=== PATIENT | female | born 1975 | race Caucasian/White ===

== ENCOUNTER 2019-02-15 11:10 | Emergency (ER) | payer OTHER, MEDICAID, SELFPAY ==
[2019-02-15] VITALS (11 sets, daily range): BP systolic 137–179; BP diastolic 71–109; PULSE 21–99; RESP 14–22; TEMP 36.6–37.5; O2SAT 97–100; BMI 31.4
--- NOTE | 2019-02-15 13:02 | DI.RAD.S_ITS ---
PROCEDURE: XR CHEST 2V INDICATIONS: chest pain TECHNIQUE: 2 views of the chest were acquired. COMPARISON: None. FINDINGS: Surgical changes and devices: None. Lungs and pleura: Lungs are clear. No pleural effusions or pneumothorax. Mediastinum: Mediastinal contours are normal. Heart size is normal. Bones and chest wall: No suspicious bony abnormalities. Soft tissues appear unremarkable. IMPRESSION: No acute cardiopulmonary findings. Dictated by: Ana Laura Avendano M.D. on 02/15/2019 at 13:24 Approved by: Ana Laura Avendano M.D. on 02/15/2019 at 13:24
--- NOTE | 2019-02-15 14:28 | ED.CHESTPAIN ---
HPI - Chest Pain <Teagan Marx PA-C - Last Filed: 02/15/19 23:05> General Chief Complaint: Chest Pain Stated Complaint: CHEST PAIN,DIZZY,HEADACHE FOR 3 DAYS Time Seen by Provider: 02/15/19 11:18 Source: patient Mode of arrival: ambulatory Limitations: no limitations History of Present Illness HPI narrative: This 43-year-old woman comes to ED secondary to intermittent sharp, brief, stabbing chest pains worsening over the last 3 weeks (she states they started about 2 months ago). She states that she has also had intermittent palpitations, which she describes as a fast, but regular heart rate, in the same time period as well. she states that the pains do not correlate with the times that she has palpitations. She states that pains can occur at rest or anytime, last a second like a little stab. She states that last night in bed she had onset of the palpitations, then the brief chest pains. She states that these are localized. She denies any dyspnea, nausea or vomiting it. She denies any radiation of the pain. she states symptoms are not exertional, but sometimes when she does exert herself her heart rate will be faster. She states that she can be lightheaded with the palpitations and did not go to work in the last couple of days due to feeling poorly. She has not had any recent upper respiratory illness such as cough, fever, or wheezing, states she has some nasal congestion and ongoing headache that she thinks is due to her allergies. She denies any pain or swelling in her arms or legs or other new symptoms today. States that she does not have any urinary symptoms or bowel habit changes or blood in the stools, denies possibility of . She notes that her blood pressure has tended to be on the high side though no diagnosis of hypertension, and she has been working on weight loss to help with that. She has not been taking any new supplements or herbal medications and is not on any chronic medications. She has been eating and drinking normally. Her symptoms are better today, states she did not come in last night because she thought it would get better. No family history of blood clots. Related Data Home Medications Medication Instructions Recorded Confirmed ferrous sulfate 325 mg (65 mg 325 mg PO DAILY tab 02/18/19 02/18/19 iron) tablet Previous Rx's Medication Instructions Recorded tranexamic acid 650 mg tablet 1,300 mg PO TID 5 Days #30 tab 02/18/19 Allergies Allergy/AdvReac Type Severity Reaction Status Date / Time No Known Drug Allergies Allergy Verified 02/18/19 15:05 Review of Systems <Teagan Marx PA-C - Last Filed: 02/15/19 23:05> Review of Systems ROS Unobtainable: All systems reviewed & are unremarkable except as noted in HPI and below PFSH <Teagan Marx PA-C - Last Filed: 02/15/19 23:05> Medical History (Updated 02/15/19 @ 22:52 by Teagan Marx PA-C) Elevated blood pressure reading (Chronic) Seasonal allergies (Chronic) Surgical History (Updated 02/15/19 @ 14:54 by Teagan Marx PA-C) No history of previous surgery (Chronic) Social History Smoking Status: Never smoker Social History Smoking Status: Never smoker Exam <Teagan Marx PA-C - Last Filed: 02/15/19 23:05> Narrative Exam Narrative: GENERAL APPEARANCE: Patient sitting comfortably, in no distress. NECK/THYROID: Neck supple, no JVD. LUNGS: Clear to auscultation bilaterally. CHEST: Minimal sternal tenderness to palpation HEART: Regular rate and rhythm without murmur, normal S1, S2, no S3 or S4. ABDOMEN: Soft, NT, ND, + BS x 4 quadrants EXTREMITIES: No cyanosis or edema. No calf tenderness RECTAL: Prolapsed hemorrhoid noted, there is minimal stool in vault, guaiac negative, no palpable masses NEUROLOGIC: Alert and oriented, normal speech, gait and coordination. DERMATOLOGIC: No exanthem Initial Vital Signs Initial Vital Signs: Vital Signs Temperature 97.9 F 02/15/19 11:23 Pulse Rate 94 H 02/15/19 11:23 Respiratory Rate 15 02/15/19 11:23 Blood Pressure 179/109 H 02/15/19 11:23 Pulse Oximetry 100 02/15/19 11:23 <Amalia Peralta DO - Last Filed: 02/21/19 07:26> Initial Vital Signs Initial Vital Signs: Vital Signs Temperature 97.9 F 02/15/19 11:23 Pulse Rate 94 H 02/15/19 11:23 Respiratory Rate 15 02/15/19 11:23 Blood Pressure 179/109 H 02/15/19 11:23 Pulse Oximetry 100 02/15/19 11:23 Course <Teagan Marx PA-C - Last Filed: 02/15/19 23:05> Additional Information: Patient has no history of anemia, but in discussion she has chronic very heavy menses. She states these have been gradually getting worse to the point that she will need to wear a diaper sometimes. She had a prolonged menses starting in late November that lasted close to 6 weeks and was heavy. She states that her menses end of last month lasted about 5 days, heavy with clots but more typical for her. Suspect her bleeding is gradual, chronic. No evidence of GI bleed. Transfusion ordered. I have spoken with Dr. Bray who is on-call for aquatics specialist, does not think she needs admission but will see her on Monday, requested ultrasound be done here. Patient was transfused 2 units, feeling significantly improved at the time of discharge. patient agrees to start on iron supplementation tomorrow. Orders Ordered: Discontinued Medications Acetaminophen (Tylenol) 650 mg PO NOW ONE Stop: 02/15/19 15:52 Last Admin: 02/15/19 18:12 Dose: 650 mg Diphenhydramine HCl (Benadryl) 25 mg IV NOW ONE Stop: 02/15/19 15:52 Last Admin: 02/15/19 18:13 Dose: 25 mg Ketorolac Tromethamine (Toradol) 30 mg IV NOW ONE Stop: 02/15/19 21:01 Last Admin: 02/15/19 21:04 Dose: 30 mg Vital Signs - 8 hr 02/15/19 18:09 02/15/19 18:41 02/15/19 18:56 Temperature 99.5 F 99.3 F Pulse Rate 97 H 98 H 97 H Respiratory Rate 20 20 18 Blood Pressure 145/71 H Blood Pressure [Left Arm] 153/80 H 143/75 H Pulse Oximetry 97 99 02/15/19 18:57 02/15/19 19:27 02/15/19 20:00 Temperature 99.5 F Pulse Rate 99 H 99 H 21 L Respiratory Rate 18 17 14 Blood Pressure 138/72 Blood Pressure [Left Arm] 143/75 H 146/82 H Pulse Oximetry 97 99 02/15/19 21:27 02/15/19 22:50 Temperature 99 F Pulse Rate 94 H 86 Respiratory Rate 19 18 Blood Pressure 137/79 Blood Pressure [Left Arm] 153/81 H Pulse Oximetry 99 <Amalia Peralta DO - Last Filed: 02/21/19 07:26> Orders Ordered: Discontinued Medications Acetaminophen (Tylenol) 650 mg PO NOW ONE Stop: 02/15/19 15:52 Last Admin: 02/15/19 18:12 Dose: 650 mg Diphenhydramine HCl (Benadryl) 25 mg IV NOW ONE Stop: 02/15/19 15:52 Last Admin: 02/15/19 18:13 Dose: 25 mg Ketorolac Tromethamine (Toradol) 30 mg IV NOW ONE Stop: 02/15/19 21:01 Last Admin: 02/15/19 21:04 Dose: 30 mg Vital Signs - 8 hr 02/15/19 18:09 02/15/19 18:41 02/15/19 18:56 Temperature 99.5 F 99.3 F Pulse Rate 97 H 98 H 97 H Respiratory Rate 20 20 18 Blood Pressure 145/71 H Blood Pressure [Left Arm] 153/80 H 143/75 H Pulse Oximetry 97 99 02/15/19 18:57 02/15/19 19:27 02/15/19 20:00 Temperature 99.5 F Pulse Rate 99 H 99 H 21 L Respiratory Rate 18 17 14 Blood Pressure 138/72 Blood Pressure [Left Arm] 143/75 H 146/82 H Pulse Oximetry 97 99 02/15/19 21:27 02/15/19 22:50 Temperature 99 F Pulse Rate 94 H 86 Respiratory Rate 19 18 Blood Pressure 137/79 Blood Pressure [Left Arm] 153/81 H Pulse Oximetry 99 MDM - Chest Pain <Teagan Marx PA-C - Last Filed: 02/15/19 23:05> Lab Data Attestation: I reviewed the patient's lab results. Result diagrams: 02/15/19 20:35 02/15/19 14:50 Lab Results 02/15/19 02/15/19 02/15/19 Range/Units 14:50 14:50 14:50 WBC 8.5 (4.5-11.0) X10^3/uL RBC 4.68 (4.0-5.2) X10^6/uL Hgb 7.2 L (12.0-16.0) g/dL Hct 25.1 L (36-46) % MCV 53.7 L (80-100) fL MCH 15.3 L (26-34) PG MCHC 28.4 L (30-36) % RDW 20.1 H (11.6-14.8) % Plt Count 546 H (150-400) X10^3/uL Neut % (Auto) 63.1 (50-75) % Lymph % (Auto) 27.6 (25-40) % [place] % (Auto) 6.9 (3-14) % Eos % (Auto) 0.9 L (2-4) % Baso % (Auto) 1.5 (0-2) % Neut # (Auto) 5300 (9966-3009) /uL Lymph # (Auto) 2300 (5228-9034) /uL [place] # (Auto) 600 (0-900) /uL Eos # (Auto) 100 (0-450) /uL Baso # (Auto) 100 (0-100) /uL RBC Morphology Not Reportable Hypochromasia 3+ H Anisocytosis 3+ H Microcytosis 3+ H Stomatocytes 1+ H Sodium 137 (137-145) mmol/L Potassium 3.7 (3.4-5.1) mmol/L Chloride 100 (98-107) mmol/L Carbon Dioxide 25 (22-32) mmol/L BUN 9 (7-17) mg/dL Creatinine 0.50 L (0.52-1.04) mg/dL Estimated GFR > 60.0 (>60) mL/min BUN/Creatinine Ratio 18.0 (6-22) Glucose 99 (70-100) mg/dL Calcium 9.3 (8.4-10.2) mg/dL Magnesium 1.9 (1.6-2.3) mg/dL Total Bilirubin 0.4 (0.2-1.3) mg/dL AST 31 (14-36) IU/L ALT 32 (9-52) IU/L Alkaline Phosphatase 79 (38-126) U/L Total Protein 8.4 H (6.3-8.2) g/dL Albumin 4.6 (3.5-5.0) g/dL Globulin 3.8 (1.7-4.1) g/dL Albumin/Globulin Ratio 1.2 (1.0-2.8) TSH 2.11 (0.47-4.68) uIU/mL Blood Type Antibody Screen Crossmatch 02/15/19 02/15/19 Range/Units 15:57 20:35 WBC (4.5-11.0) X10^3/uL RBC (4.0-5.2) X10^6/uL Hgb 8.6 L (12.0-16.0) g/dL Hct 29.1 L (36-46) % MCV (80-100) fL MCH (26-34) PG MCHC (30-36) % RDW (11.6-14.8) % Plt Count (150-400) X10^3/uL Neut % (Auto) (50-75) % Lymph % (Auto) (25-40) % [place] % (Auto) (3-14) % Eos % (Auto) (2-4) % Baso % (Auto) (0-2) % Neut # (Auto) (9176-3992) /uL Lymph # (Auto) (2109-4687) /uL [place] # (Auto) (0-900) /uL Eos # (Auto) (0-450) /uL Baso # (Auto) (0-100) /uL RBC Morphology Hypochromasia Anisocytosis Microcytosis Stomatocytes Sodium (137-145) mmol/L Potassium (3.4-5.1) mmol/L Chloride (98-107) mmol/L Carbon Dioxide (22-32) mmol/L BUN (7-17) mg/dL Creatinine (0.52-1.04) mg/dL Estimated GFR (>60) mL/min BUN/Creatinine Ratio (6-22) Glucose (70-100) mg/dL Calcium (8.4-10.2) mg/dL Magnesium (1.6-2.3) mg/dL Total Bilirubin (0.2-1.3) mg/dL AST (14-36) IU/L ALT (9-52) IU/L Alkaline Phosphatase (38-126) U/L Total Protein (6.3-8.2) g/dL Albumin (3.5-5.0) g/dL Globulin (1.7-4.1) g/dL Albumin/Globulin Ratio (1.0-2.8) TSH (0.47-4.68) uIU/mL Blood Type B Positive Antibody Screen Negative Crossmatch See Detail Point of Care Testing Test Results Negative Imaging Data Chest x-ray: Radiologist's impression: Chart Viewer Diagnostics DATE TYPE STATUS AUTHOR Hx 02/15/19 13:02 Ana Laura Avendano Lizbeth Turcios 43, F0 1975 REG ER, ED.LOC - Main ED: R05 157.48cm 78.018kg BMI: 31.5kg/m? Chest Pain Search Chart No Data to Display No Data to Display ONSET Today 11:23 Lizbeth Turcios 43 F 1975 [place] [address] XRay Report Signed Patient: Lizbeth Turcios LMR#: [id number] : 1975Acct:[id number] Age/Sex: 43 / FDate of Service: 02/15/19 Loc: ED Accession Number: [id number] Procedure: XR chest 2V Ordering Provider: Jaleel Jain D.O. PROCEDURE: XR CHEST 2V INDICATIONS: chest pain TECHNIQUE: 2 views of the chest were acquired. COMPARISON: None. FINDINGS: Surgical changes and devices: None. Lungs and pleura: Lungs are clear. No pleural effusions or pneumothorax. Mediastinum: Mediastinal contours are normal. Heart size is normal. Bones and chest wall: No suspicious bony abnormalities. Soft tissues appear unremarkable. IMPRESSION: No acute cardiopulmonary findings. Dictated by: Ana Laura Avendano M.D. on 02/15/2019 at 13:24 Approved by: Ana Laura Avendano M.D. on 02/15/2019 at 13:24 US pelvis: Radiologist's impression: 24 Teagan Marx PA-C Find Patient Imaging Lizbeth Turcios 43 F 1975 ACTIVITY DATE EXAM STATUS AUTHOR 02/15/19 15:59 Signed Ana Laura Avendano 02/15/19 13:02 Signed Ana Laura Avendano ORDER STATUS ORDER START ORDER DETAIL US pelvic limited Cancelled 02/15/19 15:52 US abdomen complete Cancelled 02/15/19 14:[address] [address] Ultrasound Report Signed Patient: Lizbeth Turcios LMR#: [id number] : 1975Acct:[id number] Age/Sex: 43 / FDate of Service: 02/15/19 Loc: ED Accession Number: [id number] Procedure: US pelvic complete Ordering Provider: Teagan Marx P.A-C PROCEDURE: US PELVIC COMPLETE INDICATIONS: abnormal bleeding, anemi TECHNIQUE: Real-time scanning was performed of the pelvic organs, with image documentation. Additional endovaginal scanning was necessary due to incomplete visualization of the adnexal and endometrial structures by transabdominal scanning. COMPARISON: None. FINDINGS: Transabdominal scanning: Limited scanning through the kidneys shows no hydronephrosis. No pathologic free abdominal or pelvic fluid Endovaginal scanning: Uterus: Uterus is normal in size at 10.9 x 6.2 cm. The endometrium measures 13 mm in combined thickness. . There is a midline submucosal fibroid with calcifications which measures 1.8 x 1.7 x 1.6 cm. There is a midline posterior intramural fibroid which measures 1.1 x 0.9 x 0.1 cm. Ovaries: The right ovary is not visualized. The left ovary measures 2.3 x 1.4 x 1.9 cm. There is a 1.7 x 1.5 x 2.1 cm left ovarian cyst. IMPRESSION: 1. Small uterine fibroids. 2. Left ovarian cyst which is likely physiologic in a premenopausal female. 3. No discrete findings to explain patient's symptoms. Dictated by: Ana Laura Avendano M.D. on 02/15/2019 at 16:56 Approved by: Ana Laura Avendano M.D. on 02/15/2019 at 16:59 ECG Data Attestation: I personally reviewed and interpreted this ECG as follows: (Normal sinus rhythm, rate 94, normal axis, no ST changes) <Amalia Peralta, DO - Last Filed: 02/21/19 07:26> Lab Data Lab Results 02/15/19 02/15/19 02/15/19 Range/Units 14:50 14:50 14:50 WBC 8.5 (4.5-11.0) X10^3/uL RBC 4.68 (4.0-5.2) X10^6/uL Hgb 7.2 L (12.0-16.0) g/dL Hct 25.1 L (36-46) % MCV 53.7 L (80-100) fL MCH 15.3 L (26-34) PG MCHC 28.4 L (30-36) % RDW 20.1 H (11.6-14.8) % Plt Count 546 H (150-400) X10^3/uL Neut % (Auto) 63.1 (50-75) % Lymph % (Auto) 27.6 (25-40) % [place] % (Auto) 6.9 (3-14) % Eos % (Auto) 0.9 L (2-4) % Baso % (Auto) 1.5 (0-2) % Neut # (Auto) 5300 (1892-6934) /uL Lymph # (Auto) 2300 (9086-1615) /uL [place] # (Auto) 600 (0-900) /uL Eos # (Auto) 100 (0-450) /uL Baso # (Auto) 100 (0-100) /uL RBC Morphology Not Reportable Hypochromasia 3+ H Anisocytosis 3+ H Microcytosis 3+ H Stomatocytes 1+ H Sodium 137 (137-145) mmol/L Potassium 3.7 (3.4-5.1) mmol/L Chloride 100 (98-107) mmol/L Carbon Dioxide 25 (22-32) mmol/L BUN 9 (7-17) mg/dL Creatinine 0.50 L (0.52-1.04) mg/dL Estimated GFR > 60.0 (>60) mL/min BUN/Creatinine Ratio 18.0 (6-22) Glucose 99 (70-100) mg/dL Calcium 9.3 (8.4-10.2) mg/dL Magnesium 1.9 (1.6-2.3) mg/dL Total Bilirubin 0.4 (0.2-1.3) mg/dL AST 31 (14-36) IU/L ALT 32 (9-52) IU/L Alkaline Phosphatase 79 (38-126) U/L Total Protein 8.4 H (6.3-8.2) g/dL Albumin 4.6 (3.5-5.0) g/dL Globulin 3.8 (1.7-4.1) g/dL Albumin/Globulin Ratio 1.2 (1.0-2.8) TSH 2.11 (0.47-4.68) uIU/mL Blood Type Antibody Screen Crossmatch 02/15/19 02/15/19 Range/Units 15:57 20:35 WBC (4.5-11.0) X10^3/uL RBC (4.0-5.2) X10^6/uL Hgb 8.6 L (12.0-16.0) g/dL Hct 29.1 L (36-46) % MCV (80-100) fL MCH (26-34) PG MCHC (30-36) % RDW (11.6-14.8) % Plt Count (150-400) X10^3/uL Neut % (Auto) (50-75) % Lymph % (Auto) (25-40) % [place] % (Auto) (3-14) % Eos % (Auto) (2-4) % Baso % (Auto) (0-2) % Neut # (Auto) (1378-0101) /uL Lymph # (Auto) (7697-4255) /uL [place] # (Auto) (0-900) /uL Eos # (Auto) (0-450) /uL Baso # (Auto) (0-100) /uL RBC Morphology Hypochromasia Anisocytosis Microcytosis Stomatocytes Sodium (137-145) mmol/L Potassium (3.4-5.1) mmol/L Chloride (98-107) mmol/L Carbon Dioxide (22-32) mmol/L BUN (7-17) mg/dL Creatinine (0.52-1.04) mg/dL Estimated GFR (>60) mL/min BUN/Creatinine Ratio (6-22) Glucose (70-100) mg/dL Calcium (8.4-10.2) mg/dL Magnesium (1.6-2.3) mg/dL Total Bilirubin (0.2-1.3) mg/dL AST (14-36) IU/L ALT (9-52) IU/L Alkaline Phosphatase (38-126) U/L Total Protein (6.3-8.2) g/dL Albumin (3.5-5.0) g/dL Globulin (1.7-4.1) g/dL Albumin/Globulin Ratio (1.0-2.8) TSH (0.47-4.68) uIU/mL Blood Type B Positive Antibody Screen Negative Crossmatch See Detail Point of Care Testing Test Results Negative ECG Data Attestation: I personally reviewed and interpreted this ECG as follows: Prior ECG tracings: not available for review Interpretation: Normal sinus rhythm rate 94 P are interval 131 the T-wave inversion noted in lead [address] changes Discharge Plan Departure Patient Disposition: Home Clinical Impression: Anemia Qualifiers: Anemia type: iron deficiency Iron deficiency anemia type: chronic blood loss Qualified Code(s): D50.0 - Iron deficiency anemia secondary to blood loss (chronic) Discharge Date/Time: 02/15/19 22:10 Interventions: ED Discharge Assessment Last Done: 02/15/19 22:10 Instructions: DI for Iron Deficiency Anemia-Adult Activity Restrictions/Additional Instructions: You were found to be very anemic today and we have given you a blood transfusion to help with this and help you feel better. Since you are feeling better, you can return home. I suspect that you have a chronic iron deficiency anemia which has gradually worsened due to your severe menstrual bleeding. I have talked with Dr. Bray, our on-call cool roofing installer, and she will see you on Monday afternoon, please check in at 3:15. for your appointment. Tomorrow morning brain picker iron supplement (ferrous sulfate, 324 or 325 mg, available [id number]) and start taking 1 tablet twice daily. Please return to the ED if you have any acutely worsening symptoms over the weekend. Prescriptions: No Action ferrous sulfate 325 mg (65 mg iron) tablet 325 mg PO DAILY RF: 0 tranexamic acid 650 mg tablet 1,300 mg PO TID 5 Days Qty: 30 RF: 0 Referrals: Ashlie Bray MD [Physician] - Raya Garcia ARNP [Non-Staff] - <Amalia Peralta DO - Last Filed: 02/21/19 07:26> Cosign ED Attending Amandaature Attestation: I was immediately available in the department for consultation. Documentation has been reviewed. I agree with assessment and plan.
[2019-02-15 14:56] LABS: Add Manual Diff / Slide Review NO; Basophils Absolute Auto 100 /uL (0-100); Basophils Percent Auto 1.5 % (0-2); Eosinophils Absolute Auto 100 /uL (0-450); Eosinophils Percent Auto 0.9 % (2-4); Hematocrit 25.1 % (36-46); Hemoglobin 7.2 g/dL (12.0-16.0); Lymphocytes Absolute Auto 2300 /uL (1100-4500); Lymphocytes Percent Auto 27.6 % (25-40); Mean Corpuscular HGB Conc 28.4 % (30-36); Mean Corpuscular Hemoglobin 15.3 PG (26-34); Mean Corpuscular Volume 53.7 fL (80-100); Monocytes Absolute Auto 600 /uL (0-900); Monocytes Percent Auto 6.9 % (3-14); Neutrophils Absolute Auto 5300 /uL (1500-7000); Neutrophils Percent Auto 63.1 % (50-75); Platelet Count 546 X10^3/uL (150-400); Red Blood Cell Count 4.68 X10^6/uL (4.0-5.2); Red Cell Distribution Width 20.1 % (11.6-14.8); White Blood Cell Count 8.5 X10^3/uL (4.5-11.0)
[2019-02-15 15:09] LABS: Alanine Aminotransferase 32 IU/L (9-52); Albumin 4.6 g/dL (3.5-5.0); Albumin Globulin Ratio 1.2 (1.0-2.8); Alkaline Phosphatase 79 U/L (38-126); Aspartate Aminotransferase 31 IU/L (14-36); Bilirubin Total 0.4 mg/dL (0.2-1.3); Blood Urea Nitrogen 9 mg/dL (7-17); Calcium 9.3 mg/dL (8.4-10.2); Carbon Dioxide 25 mmol/L (22-32); Chloride 100 mmol/L (98-107); Estimated Glomerular Filt Rate > 60.0 mL/min (>60); Globulin 3.8 g/dL (1.7-4.1); Glucose 99 mg/dL (70-100); HEMOLYSIS < 15 (0-50); Magnesium 1.9 mg/dL (1.6-2.3); Potassium 3.7 mmol/L (3.4-5.1); Sodium 137 mmol/L (137-145); Total Protein 8.4 g/dL (6.3-8.2)
[2019-02-15 15:26] LABS: Anisocytosis 3+; Hypochromasia 3+; Microcytosis 3+; Stomatocytes 1+
[2019-02-15 15:50] LABS: Thyroid Stimulating Hormone 2.11 uIU/mL (0.47-4.68)
--- NOTE | 2019-02-15 15:59 | DI.US.S_ITS ---
PROCEDURE: US PELVIC COMPLETE INDICATIONS: abnormal bleeding, anemi TECHNIQUE: Real-time scanning was performed of the pelvic organs, with image documentation. Additional endovaginal scanning was necessary due to incomplete visualization of the adnexal and endometrial structures by transabdominal scanning. COMPARISON: None. FINDINGS: Transabdominal scanning: Limited scanning through the kidneys shows no hydronephrosis. No pathologic free abdominal or pelvic fluid Endovaginal scanning: Uterus: Uterus is normal in size at 10.9 x 6.2 cm. The endometrium measures 13 mm in combined thickness. . There is a midline submucosal fibroid with calcifications which measures 1.8 x 1.7 x 1.6 cm. There is a midline posterior intramural fibroid which measures 1.1 x 0.9 x 0.1 cm. Ovaries: The right ovary is not visualized. The left ovary measures 2.3 x 1.4 x 1.9 cm. There is a 1.7 x 1.5 x 2.1 cm left ovarian cyst. IMPRESSION: 1. Small uterine fibroids. 2. Left ovarian cyst which is likely physiologic in a premenopausal female. 3. No discrete findings to explain patient's symptoms. Dictated by: Ana Laura Avendano M.D. on 02/15/2019 at 16:56 Approved by: Ana Laura Avendano M.D. on 02/15/2019 at 16:59
[2019-02-15] MEDS: ACETAMINOPHEN 325 MG TABLET 650 MG PO (18:12)
[2019-02-15] MEDS: diphenhydrAMINE 50 MG/ML VIAL 25 MG IV (18:13)
[2019-02-15 20:53] LABS: Hematocrit 29.1 % (36-46); Hemoglobin 8.6 g/dL (12.0-16.0)
[2019-02-15] MEDS: KETOROLAC 60 MG/2 ML VIAL 30 MG IV (21:04)
== END 2019-02-15 22:10 | disposition home or self-care (01) ==
PROVIDERS: Emergency Provider Internal Medicine
DX: D50.0 Iron deficiency anemia secondary to blood loss (chronic) (principal); R07.89 Other chest pain; R00.2 Palpitations
CPT/HCPCS: 36415; 36430; 36591; 71046; 76830; 76856; 80053; 81025; 83735; 84443; 85014; 85018; 85025; 86850; 86900; 86901; 93005; 93010; 96374; 96375; 99283; 99284; 99285; P9016; J1200; J1885

== ENCOUNTER 2019-03-27 07:49 | Day surgery (SDC) | payer OTHER, MEDICAID, SELFPAY ==
[2019-03-14] MEDS: HYDROMORPHONE 2 MG INJ 0.5 MG IV (11:10)
[2019-03-14 12:14] VITALS: BMI 32.1
[2019-03-27] VITALS (15 sets, daily range): BP systolic 108–153; BP diastolic 41–90; PULSE 81–128; RESP 12–96; TEMP 36.1–37.2; O2SAT 14–99; BMI 32.5
--- NOTE | 2019-03-27 | PATH_ITS ---
[facility] Accession Number: [id number] . 01 Material submitted: . uterus - UTERUS . 01 Diagnosis: Uterus, Hysterectomy: Myometrium with multiple leiomyomas (up to 3.0 cm). Mid secretory phase endometrium; negative for polyp, hyperplasia and malignancy. Cross sections of fallopian tube are present and are negative for dysplasia and malignancy. Cervix is not present for evaluation. [facility]04/01/2019 . 01 Electronically signed: Ovidio Limon MD, Pathologist NPI- [id number] . 01 Gross description: . Received in formalin, labeled uterus, is a morcellated uterus (168 grams, 14.5 x 11.5 x 4.0 cm in aggregate). The cervix, ovaries, and fallopian tubes are absent. The specimen cannot be oriented and the endometrium and myometrium cannot be grossly measured. The parenchyma is ying and contains multiple solid firm white whorled well-circumscribed homogenous nodules (1.2 x 1.0 x 0.7 cm-3.0 x 2.8 x 2.0 cm). The serosa is ying smooth and shiny. A ivey-ying rubbery tubular structure (length-3.3 cm, diameter-0.5 cm) is identified. Commercial Account Officer parenchyma and nodules are submitted in cassettes A1-A4, and the tubular structure is serially sectioned and entirely submitted in cassette A5. Additional sections: (A6-A8) additional senior patient account representative tissue. ([id number]) /MRV . 01 Pathologist provided ICD-10: D25.9 . 01 CPT . 651973 Performed at: [address], [place], [place] [id number] MD Joe Oneil MD Phone: [phone]
--- NOTE | 2019-03-27 08:15 | PM.PREOP ---
Pre-operative Note Interval Note History & Physical reviewed/Exam performed by Physician: Yes Changes to H&P: No
[2019-03-27] MEDS: LACTATED RINGERS 1,000 ML 100 ML IV ×3 (08:24→12:25)
[2019-03-27] MEDS: CEFAZOLIN 2 GM/100 ML FROZ.PIGGY IV (08:42)
--- NOTE | 2019-03-27 09:15 | SUR.OPER ---
Lithotomy on padded OR bed. [place] Pad Positioner under torso. Head on pillow, arms padded and tucked at sides. Legs secured in padded yellow fins stirrups.
[2019-03-27] MEDS: BUPIVACAINE 0.5% W/ EPI (PF) VIAL 30 ML INJ (09:26)
[2019-03-27] MEDS: HYDROMORPHONE 2 MG INJ 0.5 MG IV ×7 (10:40→11:15)
--- NOTE | 2019-03-27 10:43 | P.OP_ITS ---
Operative Date/Time/Diagnoses Date of procedure: 03/27/19 Time of procedure: 10:38 Pre-op diagnosis: Menorrhagia from submucous fibroid Post-op diagnosis: same Procedure & Clinicians Procedure: Laparoscopic supracervical hysterectomy Same procedure as scheduled: Yes Indications: Menorrhagia requiring blood transfusion from submucous fibroid Surgeon: Ashlie Bray Public Relations Studies Director: Naveed Franz Yes if Unassisted: No Anesthesia Type: General Operative Notes Findings: Status post left partial salpingectomy, slightly enlarged uterus with submucous fibroid, normal left ovary, right ovarian simple cyst, normal bowel surface and liver edge, no internal hernias, no endometriosis, no scar tissue Closure Type: primary Specimen(s): other (Uterus above the level of the bladder, no cervix) Estimated Blood Loss (mL): 150 Blood products transfused: none Procedure in detail: Patient is brought to the operating room where she underwent general anesthesia and placed in low [facility] stirrups. She was prepped and draped in the usual sterile fashion. A check list was reviewed with the staff in the room prior to beginning of the case. Patient had pulsatile stockings in place and functional. 2 g of Ancef were in prior to beginning of the case.. A Babcock catheter was placed. A single-tooth tenaculum was placed on the anterior lip of the cervix and the cervix dilated to a #6 Hegar dilator. The uterine manipulator was placed through the cervix into the uterus with the balloon inflated with 3 mL of air. The area of the umbilical incision and the 5 mm right and left lower quadrant incisions were injected with Marcaine. An incision was made with scalpel. The verries needle was placed into the abdomen and confirmed in the appropriate place with withdrawal on a syringe and then free flow of fluid down through the needle. The abdomen was insufflated with CO2. The needle was removed and a 5 mm trocar placed without difficulty. There did not appear to be any damage is placement of the trocar. The right and left lower quadrant incisions were made with the scalpel and the trochars placed without damage to internal structures. The PK forceps were used to cauterize the utero-ovarian ligaments. The remaining section of the left tube mesosalpinx was cauterized to allow removal with the specimen. The right fallopian tube was cauterized. Bilateral round ligaments were cauterized. Sequential bites were taken down the broad ligaments. The uterine arteries were cauterized. An incision was made above the level bladder pushing the bladder away from the cervix. The MARIA LUISA loop was placed around the uterus and the uterus was amputated above the level of the bladder. Bleeding was controlled with the PK forceps. The PK forceps were used to cauterize in the endocervical canal. A supracervical incision was made and an 11 mm port placed. A 15 mm Endo Catch bag was placed in the abdomen. The uterus, tubes and ovaries were placed in the bag and brought up through the suprapubic port site. The Leon O was placed. The uterus was hand morselized. The abdomen was reinsufflated and adequate hemostasis was noted. The trochars were removed and the CO2 allowed escape from the abdomen. The fascia layer of the suprapubic site was repaired with 0 Polysorb suture. Skin was closed with 4-0 Monocryl suture at the suprapubic site and the other 3 sites. The patient went to recovery room in good condition. Counts of instruments and sponges were correct. Complications: none Condition: stable Disposition: observation Plan for aftercare: Possible home later today if no nausea and able to ambulate
[2019-03-27] MEDS: KETOROLAC 30 MG/ML VIAL IV (12:39)
--- NOTE | 2019-03-27 13:30 | PC.NURSE ---
Pt is awake and drinking some juice. She denies nausea. Given iv zofran for complaints of discomfort. 3 small incisions all wnl and cdi. Pt has LR infusing through iv that is patent. Visiting with her mom and . BT hypoactive x4, pt is not passing gas at this time.
[2019-03-27] MEDS: OXYCODONE IR 5 MG TABLET PO (15:46)
--- NOTE | 2019-03-27 16:07 | PM.DS.1 ---
History of Present Illness Date Patient Seen: 03/27/19 Time Patient Seen: 16:08 Chief complaint: [id number] Narrative: Patient underwent a laparoscopic supracervical hysterectomy earlier today. She is ambulatory, not nauseated, urinating well. Discharge Providers Discharge Date: 03/27/19 Discharge provider: Ashlie Bray MD Summary Discharge Diagnosis: Menorrhagia from submucous fibroid status post laparoscopic supracervical hysterectomy. Hospital Course: Patient underwent a laparoscopic supracervical hysterectomy. She is doing well post operatively and is requesting discharge. She is ambulatory. She is not nauseated. She is able to urinate. Status at Discharge Cognitive/behavioral status at discharge: oriented Functional status at discharge: independent ambulation Overall status at discharge: patient is progressing back to baseline Time Spent with Patient Less than 30 minutes Exam Vital Signs (past 8 hours): - 03/27/19 08:12 03/27/19 10:35 03/27/19 10:40 Temperature 97.6 F 97.9 F 97.8 F Pulse Rate 81 128 H 87 Respiratory Rate 16 17 17 Blood Pressure 132/84 142/78 H 153/90 H Pulse Oximetry 99 95 94 03/27/19 10:45 03/27/19 11:00 03/27/19 11:10 Temperature 97.8 F 98.9 F 98 F Pulse Rate 91 H 86 90 Respiratory Rate 14 15 12 Blood Pressure 150/85 H 139/73 123/77 Pulse Oximetry 96 98 98 03/27/19 11:20 03/27/19 11:25 03/27/19 11:35 Temperature 98 F 98 F 98 F Pulse Rate 94 H 88 89 Respiratory Rate 20 96 H 15 Blood Pressure 133/67 108/72 121/74 Pulse Oximetry 98 14 L 96 03/27/19 11:45 03/27/19 12:15 03/27/19 13:27 Temperature 97.4 F L 97.6 F 97.8 F Pulse Rate 89 90 92 H Respiratory Rate 16 16 16 Blood Pressure 124/82 125/41 L 133/78 Pulse Oximetry 94 95 95 03/27/19 13:45 03/27/19 14:52 03/27/19 15:20 Temperature 97 F L 98.6 F 98.2 F Pulse Rate 89 102 H 94 H Respiratory Rate 16 16 18 Blood Pressure 133/79 133/68 128/80 Pulse Oximetry 96 97 98 Oxygen Delivery Method Room Air Oxygen Flow Rate 0 Narrative Exam Narrative: Abdomen is soft, nontender. Dressings are dry. Extremities are nontender. Discharge Plan Discharge Plan Patient Disposition: Home Discharge Med Rec/Prescriptions Prescriptions: Continued ferrous sulfate 325 mg (65 mg iron) tablet 325 mg PO DAILY RF: 0 Multi-Vitamin HP/Minerals capsule 1 cap PO DAILY RF: 0 oxycodone 5 mg capsule 10 mg PO Q4-6H PRN (Reason: pain) Qty: 30 RF: 0 naproxen sodium [Aleve] 220 mg Capsule 220 mg PO Q8H PRN (Reason: Pain (Scale Score 1-3)) RF: 0 Follow up/Referrals: Ashlie Bray MD [Physician] - 1 Week (Patient has one-week follow-up appointment scheduled) Discharge Orders: Discharge (Order); Ordered 03/27/19 Ordered By: Ashlie Bray Provider Discharge Instructions Diet: Regular Activity: Do not drive within 4 hours of taking narcotic pain medicine, no intercourse for 1 week, no other restrictions Skin/Wound/Dressing Care Report to your healthcare provider any signs of infection, such as:: chills, fever, increased pain and unusual redness Dressing: Leave the bandaids on for 24 hours then remove, leave Steri-Strips in place for 1 week can get wet just pat dry Visit Report/Discharge Packet Instructions: DI for Hysterectomy, DI for Laparoscopy Discharge Data Attending Provider: Ashlie Bray
--- NOTE | 2019-03-27 17:03 | PC.NURSE ---
Patient is A&O x3, pleasant and cooperative w/ staff and able to make needs known when needed. Patient is POD today, incisions are covered w/ band-aids and are CDI. Patient reports pain is 3-4/10 and tolerable, PO pain meds given see MAR for details. Patient tolerated a regular mean w/ no n/v, has urinated several times, one unmeassured and one meassures see I&O for details. Patient was up walking in halls w/ spouse. Dr. Bray rounded on patient and reported to nurse that after she is up and walking she is okay to be d/c'd. Discussed patient has involuntary shaking and heartrate is elevated in the 110's. states this is okay and there is no action to be taken. Call light w/ in reach, bed in low pos. Patient is indep. in room and no alarm is active.
== END 2019-03-27 17:21 | disposition home or self-care (01) ==
LOC: OR 07:53 → AC 11:38
PROVIDERS: Visit Provider Specialist
PROC: 0UT94ZL Resection of Uterus, Supracervical, Percutaneous Endoscopic Approach (ICD-10-PCS; CPT 58541; principal; 2019-03-27 08:45)
DX: D25.0 Submucous leiomyoma of uterus (principal); N92.0 Excessive and frequent menstruation with regular cycle; D64.9 Anemia, unspecified; R03.0 Elevated blood-pressure reading, without diagnosis of hypertension
CPT/HCPCS: 58541; J0690; J1170; J1885; J3010

== ENCOUNTER 2021-09-14 17:45 | Emergency (ER) | payer SELFPAY ==
[2019-03-27 11:56] VITALS: BMI 32.5
[2021-09-14 17:55] VITALS: BP 226/106; PULSE 98; RESP 20; TEMP 37.7; O2SAT 98
--- NOTE | 2021-09-14 18:01 | DI.CT.S_ITS ---
PROCEDURE: CT CERVICAL SPINE WO CON INDICATIONS: fall/pain/swelling/vomiting TECHNIQUE: Noncontrast 3 mm thick sections acquired from the skull base to the T4 level. Sagittal and coronal reformats were then constructed. For radiation dose reduction, the following was used: automated exposure control, adjustment of mA and/or kV according to patient size. COMPARISON: None. FINDINGS: Image quality: Excellent. Bones: No fractures or dislocations. Mild degenerative endplate changes and loss of disc height at C4-5 through C6-7 levels are seen. Visualized superior ribs are intact. Soft tissues: Prevertebral soft tissues are normal in thickness. No paravertebral hematomas. No apical pneumothoraces. IMPRESSION: 1. No acute cervical spine fracture or dislocation. 2. Mild degenerative disc disease in mid to lower cervical spine. Dictated by: Talha Jimenes M.D. on 09/14/2021 at 18:29 Approved by: Talha Jimenes M.D. on 09/14/2021 at 18:29
--- NOTE | 2021-09-14 18:01 | DI.CT.S_ITS ---
PROCEDURE: CT HEAD/BRAIN WO CON INDICATIONS: fall/pain/swelling/vomiting TECHNIQUE: Noncontrast 4.5 mm thick angled axial sections acquired from the foramen magnum to the vertex, with coronal and sagittal reformats. For radiation dose reduction, the following was used: automated exposure control, adjustment of mA and/or kV according to patient size. COMPARISON: None. FINDINGS: Image quality: Excellent. CSF spaces: Basal cisterns are patent. No extra-axial fluid collections. Ventricles are normal in size and shape. Brain: No midline shift. No intracranial masses or hemorrhage. Rutherford-white matter interface is normal. Skull and face: Right frontal scalp hematoma and swelling is seen with right periorbital soft tissue swelling. Calvarium and visualized facial bones are intact, without suspicious lesions. Orbital carney are intact. Sinuses: Visualized sinuses and mastoids are clear. IMPRESSION: 1. No CT evidence of acute intracranial pathology. 2. Right frontal scalp hematoma and right periorbital soft tissue swelling. No gross acute skull fracture. Orbital carney are intact. Dictated by: Talha Jimenes M.D. on 09/14/2021 at 18:27 Approved by: Talha Jimenes M.D. on 09/14/2021 at 18:29
--- NOTE | 2021-09-14 18:46 | ED.HA ---
HPI - Headache <Vivi Abrams PA-C - Last Filed: 09/14/21 20:27> General Chief Complaint: Headache Stated Complaint: FELL T-1 PAIN IN HEAD AND SWELLING Time Seen by Provider: 09/14/21 18:15 Mode of arrival: Ambulatory History of Present Illness HPI Narrative: 46-year-old female with no reported past medical history presents to the ED status post a head injury sustained yesterday morning. Patient states she had a mechanical trip and fall as she was stepping into the shower, hitting her head on the right side. Patient states that she developed a headache, nausea, vomiting few hours after the fall. Patient's nausea and vomiting resolved this morning, however her headache persisted, which brought her to the ED. patient also endorses some paraspinal neck pain. Patient denies fever, chills, chest pain, shortness of breat, cough, abdominal pain, back pain, neck pain, dysuria, lightheadedness, dizziness, syncope. Patient denies any visual changes. Patient states she took some ibuprofen for the pain. Patient does not take blood thinners. Related Data Home Medications Medication Instructions Recorded Confirmed ferrous sulfate 325 mg (65 mg 325 mg PO DAILY tab 02/18/19 04/03/19 iron) tablet multivitamin,tx-minerals 1 cap PO DAILY 03/22/19 04/03/19 (Multi-Vitamin HP/Minerals) naproxen sodium 220 mg capsule 220 mg PO Q8H PRN 03/27/19 04/03/19 (Aleve) Allergies Allergy/AdvReac Type Severity Reaction Status Date / Time No Known Drug Allergies Allergy Verified 04/03/19 14:58 Review of Systems <Vivi Abrams PA-C - Last Filed: 09/14/21 20:27> Review of Systems ROS Unobtainable: All systems reviewed & are unremarkable except as noted in HPI and below Constitutional Constitutional: Denies chills, Denies fatigue, Denies fever(s), Denies frequent falls, Reports headache(s), Denies lethargy and Denies weakness Eyes Eyes: Denies change in vision, Denies eye discharge, Denies irritation and Denies loss of vision ENT Ears, Nose, Mouth, and Throat: Denies change in voice, Denies dizziness, Reports headache(s), Reports neck pain, Denies sore throat and Denies throat swelling Cardiovascular Cardiovascular: Denies chest pain, Denies irregular heart rhythm, Denies lightheadedness, Denies palpitations, Denies dyspnea, Denies dyspnea on exertion and Denies orthopnea Respiratory Respiratory: Denies cough, Denies dyspnea, Denies dyspnea on exertion and Denies wheezing Gastrointestinal Gastrointestinal: Denies abdominal pain, Denies change in bowel habits, Denies diarrhea, Reports nausea and Reports vomiting Genitourinary Genitourinary: Denies hematuria, Denies flank pain, Denies urinary incontinence and Denies urinary urgency Musculoskeletal Musculoskeletal: Denies back pain, Denies muscle weakness, Reports neck pain, Denies numbness and Denies tingling Integumentary/Breasts Skin/Breast: Denies pruritus, Denies erythema, Denies rash and Denies wounds Neurologic Neurologic: Denies behavioral changes, Denies confusion, Denies dizziness, Denies frequent falls, Reports headache(s), Denies loss of vision, Denies numbness, Denies tingling and Denies weakness Psychiatric Psychiatric: Denies anxiety, Denies behavioral changes, Denies confusion, Denies depression, Denies homicidal ideation and Denies suicidal ideation Endocrine Endocrine: Denies fatigue, Denies flushing and Denies palpitations Hematologic/Lymphatic Hematologic/Lymphatic: Denies easy bruising Allergic/Immunologic Allergic/Immunologic: Denies urticaria, Denies throat swelling and Denies wheezing Patient History <Vivi Abrams PA-C - Last Filed: 09/14/21 20:27> Medical History Anemia (02/15/19) Elevated blood pressure reading Menorrhagia Seasonal allergies Surgical History Anesthesia Hx of tubal ligation (~02/13/07) Family History Grandfather No problems noted. Grandmother Cancer Social History household members: spouse Smoking Status: Never smoker Smoking Status: Never smoker alcohol intake frequency: a few times a week Substance Use Type: does not use Exam <Vivi Abrams PA-C - Last Filed: 09/14/21 20:27> Initial Vital Signs Initial Vital Signs: Vital Signs Temperature 99.8 F H 09/14/21 17:55 Pulse Rate 98 H 09/14/21 17:55 Respiratory Rate 20 09/14/21 17:55 Blood Pressure 226/106 H 09/14/21 17:55 Pulse Oximetry 98 09/14/21 17:55 Const General: cooperative and healthy appearing [facility] Head: normal to inspection Ears: TM's normal bilaterally and other (No morrison sign) Eyes Other: Periorbital bruising noted around right eye. Neck Neck: normal visual inspection Other: Paraspinal neck tenderness. No midline tenderness Chest Chest: normal inspection of the chest Resp Effort & Inspection: normal respiratory effort Auscultation: clear to auscultation bilaterally Cardio Rate: regular rate Rhythm: regular rhythm GI Inspection: normal to inspection Back/Spine/Pelvis Back: normal to inspection Other: No midline tenderness Skin General: no rashes or lesions noted Neuro Other: PERRLA. CN 1 through 12 intact bilaterally. Gait normal. Negative pronator drift, negative [id number], negative rapid alternating movements, negative Romberg. Strength and sensation intact. Full range of motion. Patient is neurologically intact. Extrem General: normal to inspection <Anne Hsieh DO - Last Filed: 09/16/21 07:56> Initial Vital Signs Initial Vital Signs: Vital Signs Temperature 99.8 F H 09/14/21 17:55 Pulse Rate 98 H 09/14/21 17:55 Respiratory Rate 20 09/14/21 17:55 Blood Pressure 226/106 H 09/14/21 17:55 Pulse Oximetry 98 09/14/21 17:55 Course <Vivi Abrams PA-C - Last Filed: 09/14/21 20:27> Orders Ordered: Discontinued Medications Ketorolac Tromethamine (Ketorolac 30 Mg/Ml Vial) 15 mg IM NOW ONE Stop: 09/14/21 19:02 Last Admin: 09/14/21 19:12 Dose: 15 mg Documented by: BHANU Vital Signs Vital signs: Vital Signs - 8 hr 09/14/21 17:55 09/14/21 19:29 Temperature 99.8 F H Pulse Rate 98 H 80 Respiratory Rate 20 18 Blood Pressure 226/106 H 127/77 Pulse Oximetry 98 98 <Anne Hsieh DO - Last Filed: 09/16/21 07:56> Orders Ordered: Discontinued Medications Ketorolac Tromethamine (Ketorolac 30 Mg/Ml Vial) 15 mg IM NOW ONE Stop: 09/14/21 19:02 Last Admin: 09/14/21 19:12 Dose: 15 mg Documented by: BHANU Vital Signs Vital signs: Vital Signs - 8 hr 09/14/21 17:55 09/14/21 19:29 Temperature 99.8 F H Pulse Rate 98 H 80 Respiratory Rate 20 18 Blood Pressure 226/106 H 127/77 Pulse Oximetry 98 98 MDM - Headache <Vivi Abrams PA-C - Last Filed: 09/14/21 20:27> Medical Records Attestation: I reviewed the patient's medical records. Imaging Data CT scan - head: Radiologist's Impression: PROCEDURE:? CT HEAD/BRAIN WO CON ? INDICATIONS:? fall/pain/swelling/vomiting ? TECHNIQUE:? Noncontrast 4.5 mm thick angled axial sections acquired from the foramen magnum to the vertex, with coronal and sagittal reformats.? For radiation dose reduction, the following was used:? automated exposure control, adjustment of mA and/or kV according to patient size.? ? COMPARISON:? None. ? FINDINGS:? Image quality:? Excellent.? ? CSF spaces:? Basal cisterns are patent.? No extra-axial fluid collections.? Ventricles are normal in size and shape.? ? Brain:? No midline shift.? No intracranial masses or hemorrhage.? Rutherford-white matter interface is normal.? ? Skull and face:? Right frontal scalp hematoma and swelling is seen with right periorbital soft tissue swelling.? Calvarium and visualized facial bones are intact, without suspicious lesions.? Orbital carney are intact. ? Sinuses:? Visualized sinuses and mastoids are clear.? ? IMPRESSION:? 1. No CT evidence of acute intracranial pathology. 2. Right frontal scalp hematoma and right periorbital soft tissue swelling.? No gross acute skull fracture.? Orbital carney are intact.? ? ? Dictated by: Talha Jimenes M.D. on 09/14/2021 at 18:27 ? ? Approved by: Talha Jimenes M.D. on 09/14/2021 at 18:29 ? CT - cervical spine: Radiologist's Impression: PROCEDURE:? CT CERVICAL SPINE WO CON ? INDICATIONS:? fall/pain/swelling/vomiting ? TECHNIQUE:? Noncontrast 3 mm thick sections acquired from the skull base to the T4 level.? Sagittal and coronal reformats were then constructed.? For radiation dose reduction, the following was used:? automated exposure control, adjustment of mA and/or kV according to patient size.? ? COMPARISON:? None. ? FINDINGS:? Image quality:? Excellent.? ? Bones:? No fractures or dislocations.? Mild degenerative endplate changes and loss of disc height at C4-5 through C6-7 levels are seen.? Visualized superior ribs are intact.? ? Soft tissues:? Prevertebral soft tissues are normal in thickness.? No paravertebral hematomas.? No apical pneumothoraces.? ? ? IMPRESSION:? 1. No acute cervical spine fracture or dislocation. 2. Mild degenerative disc disease in mid to lower cervical spine.? ? ? Dictated by: Talha Jimenes M.D. on 09/14/2021 at 18:29 ? ? Approved by: Talha Jimenes M.D. on 09/14/2021 at 18:29 ? MDM Narrative Medical decision making narrative: 46-year-old female with no reported past medical history presents to the ED status post a head injury sustained yesterday morning. Concern for intracranial bleed versus concussion versus fractures. Will order CT head, CT C-spine. CT head, CT C-spine negative for intracranial bleeds or acute findings. Patient's pain improved with Toradol. Patient counseled on postconcussion syndrome. ED return precautions discussed. Patient follow-up with PCP. Patient verbalized understanding. Discharged home. Discharge Plan Departure Patient Disposition: Home Clinical Impression: Head injury Instructions: DI for Concussion Activity Restrictions/Additional Instructions: You were evaluated in the ED today for a head injury. Your CT scan did not show any bleeds or abnormalities. Your neurological exam was very reassuring as well. You likely suffered a concussion due to the head injury. Please make sure that you get enough physical and cognitive rest to recover from the concussion. You may take ibuprofen or Tylenol for your symptoms. Make sure to stay hydrated. Please follow-up with your PCP as soon as possible for post concussion syndrome management. Return to the ED if your symptoms worsen, you are vomiting so severely that you are unable to keep down fluids or solids. Prescriptions: No Action ferrous sulfate 325 mg (65 mg iron) tablet 325 mg PO DAILY 0RF Multi-Vitamin HP/Minerals capsule 1 cap PO DAILY 0RF naproxen sodium [Aleve] 220 mg Capsule 220 mg PO Q8H PRN (Reason: Pain (Scale Score 1-3)) 0RF <Anne Hsieh, - Last Filed: 09/16/21 07:56> Cosign ED Attending [place] Attestation: I was immediately available in the department for consultation. Documentation has been reviewed.
[2021-09-14] MEDS: KETOROLAC 30 MG/ML VIAL 15 MG IM (19:12)
[2021-09-14 19:29] VITALS: BP 127/77; PULSE 80; RESP 18; O2SAT 98
== END 2021-09-14 19:30 | disposition home or self-care (01) ==
PROVIDERS: Emergency Provider Student in an Organized Health Care Education/Training Program
DX: S09.90XA Unspecified injury of head, initial encounter (principal); M54.2 Cervicalgia; W01.198A Fall on same level from slipping, tripping and stumbling with subsequent striking against other object, initial encounter
CPT/HCPCS: 70450; 72125; 96372; 99283; 99284; J1885

== ENCOUNTER 2023-03-11 03:43 | Emergency (ER) | payer SELFPAY ==
[2019-03-27 11:56] VITALS: BMI 32.5
[2023-03-11 03:48] VITALS: BP 191/101; PULSE 120; RESP 22; TEMP 37; O2SAT 97; BMI 35.9
--- NOTE | 2023-03-11 04:02 | ED_ITS ---
HPI - General Adult General Chief complaint: Fall Stated complaint: GLF on 03/09/23 R flank pain Time Seen by Provider: 03/11/23 03:57 Source: patient Mode of arrival: EMS Limitations: no limitations History of Present Illness HPI narrative: Patient is a 47-year-old female who just over 24 hours ago fell landing on her right side. She did not hit her head. No loss of conscious. She reports no injuries other than discomfort of the right side of her chest. Over the time since it has happened until she is had increasing discomfort. She states she was coming down her steps at when she tripped over dog and landed on the bottom step she has been ambulatory since the event. She does have bruising on the right side her chest she is not on blood thinners Related Data Home Medications Medication Instructions Recorded Confirmed ferrous sulfate 325 mg (65 mg 325 mg PO DAILY 02/18/19 09/24/21 iron) tablet multivitamin,tx-minerals 1 cap PO DAILY 03/22/19 09/24/21 (Multi-Vitamin HP/Minerals capsule) naproxen sodium 220 mg capsule 220 mg PO Q8H PRN Pain (Scale 03/27/19 09/24/21 (Aleve) Score 1-3) Previous Rx's Medication Instructions Recorded hydrocortisone 2.5 % topical cream 1 applic topical BID PRN rash #30 09/24/21 grams cyclobenzaprine 10 mg tablet 10 mg PO TID PRN muscle spasm #21 03/11/23 tabs hydrocodone 5 mg-acetaminophen 325 1 tab PO Q4-6H PRN pain #14 tabs 03/11/23 mg tablet Allergies Allergy/AdvReac Type Severity Reaction Status Date / Time No Known Drug Allergies Allergy Verified 09/24/21 15:33 Review of Systems Constitutional Constitutional: Reports system reviewed and no additional complaints, except as documented Cardiovascular Cardiovascular: Reports system reviewed and no additional complaints, except as documented Respiratory Respiratory: Reports system reviewed and no additional complaints, except as documented Gastrointestinal Gastrointestinal: Reports system reviewed and no additional complaints, except as documented Integumentary/Breasts Skin/Breast: Reports system reviewed and no additional complaints, except as documented Hematologic/Lymphatic On Anticoagulants: No Patient History Medical History Acute pain of left shoulder Anemia (02/15/19) Eczema of left upper extremity Elevated blood pressure reading Menorrhagia Seasonal allergies Surgical History Anesthesia Hx of tubal ligation (~02/13/07) Family History Grandfather No problems noted. Grandmother Cancer Social History household members: spouse Smoking Status: Never smoker Smoking Status: Never smoker alcohol intake frequency: a few times a week Substance Use Type: does not use Exam Initial Vital Signs Initial Vital Signs: Vital Signs Temperature 98.6 F 03/11/23 03:48 Pulse Rate 120 H 03/11/23 03:48 Respiratory Rate 22 03/11/23 03:48 Blood Pressure 191/101 H 03/11/23 03:48 Pulse Oximetry 97 03/11/23 03:48 Oxygen Delivery Method Room Air 03/11/23 03:48 HENMT Head: normal to inspection and normocephalic Chest Other: Discomfort right-sided flank lateral lower ribs. Resp Effort & Inspection: normal respiratory effort Auscultation: clear to auscultation bilaterally Cardio Rate: regular rate Rhythm: regular rhythm GI Inspection: normal to inspection and non-distended Palpation: soft, No firm and No tender Back/Spine/Pelvis Cervical Spine: No cervical spinal tenderness Skin Other: Patient has had bruising over the right flank. Neuro General: patient alert, patient awake, patient oriented x3 and moves all extremities Extrem General: normal to inspection and capillary refill normal Course Orders Ordered: ED Orders 03/11/23 04:03 XR ribs RT min 3V w CXR1V Stat Discontinued Medications Hydrocodone Bitart/Acetaminophen (Hydrocodone/Acet 5/325 Tablet) 1 tab PO NOW ONE Stop: 03/11/23 06:36 Last Admin: 03/11/23 06:47 Dose: 1 tab Documented By: EMILIANO Hydrocodone Bitart/Acetaminophen (Hydrocodone/Acet 5/325 Prepack) 1 bottle MISC SEEINSTR ONE Stop: 03/11/23 06:36 Last Admin: 03/11/23 06:47 Dose: 1 bottle Documented By: EMILIANO Cyclobenzaprine HCl (Cyclobenzaprine 10 Mg Tablet) 10 mg PO NOW ONE Stop: 03/11/23 06:36 Last Admin: 03/11/23 06:47 Dose: 10 mg Documented By: EMILIANO Cyclobenzaprine HCl (Cyclobenzaprine 10 Mg Prepack) 1 bottle MISC SEEINSTR ONE Stop: 03/11/23 06:36 Last Admin: 03/11/23 06:47 Dose: 1 bottle Documented By: EMILIANO Hydromorphone HCl (Hydromorphone 1 Mg Inj) 1 mg IM NOW ONE Stop: 03/11/23 04:04 Last Admin: 03/11/23 04:39 Dose: 1 mg Documented By: EMILIANO Vital Signs Vital signs: Vital Signs - 8 hr 03/11/23 03:48 03/11/23 06:53 Temperature 98.6 F Pulse Rate 120 H 109 H Respiratory Rate 22 18 Blood Pressure 191/101 H 148/80 H Pulse Oximetry 97 95 Oxygen Delivery Method Room Air Room Air Medical Decision Making MDM Narrative Medical decision making narrative: Patient has no abdominal tenderness. Discomfort is located over her right lower ribs. She is bruising over this area. There is no crepitus. Lungs are clear. X-ray shows no acute displaced fractures. I did discuss this with her. I discuss the possibility that there is a nondisplaced fracture. I do feel that we can hold on any CT scanning for now. I have low suspicion for intra- abdominal organ injury just based on the location of her discomfort. Will send home with symptom control although she was given specific return precautions. She expressed understanding and agreement with plan. Discharge Plan Departure Patient Disposition: Home Clinical Impression: Rib contusion Instructions: DI for Rib Contusion Activity Restrictions/Additional Instructions: It is important that you use the medications as needed and as directed. If you start to have fevers or worsening pain or develop any new symptoms please return to the emergency department for further evaluation. Prescriptions: New hydrocodone-acetaminophen 5-325 mg tablet 1 tab PO Q4-6H PRN (Reason: pain) Qty: 14 0RF cyclobenzaprine 10 mg tablet 10 mg PO TID PRN (Reason: muscle spasm) Qty: 21 0RF No Action ferrous sulfate 325 mg (65 mg iron) tablet 325 mg PO DAILY hydrocortisone 2.5 % cream 1 applic topical BID PRN (Reason: rash) Qty: 30 1RF Multi-Vitamin HP/Minerals capsule 1 cap PO DAILY naproxen sodium [Aleve] 220 mg Capsule 220 mg PO Q8H PRN (Reason: Pain (Scale Score 1-3)) Referrals: Miscellaneous,Doctor, MD [Primary Care Provider] - Stand Alone Forms: Patient Portal/API
--- NOTE | 2023-03-11 04:03 | DI.RAD.S_ITS ---
PROCEDURE: XR RIBS RT MIN 3V W CXR 1V INDICATIONS: R lateral mid rib pain after fall TECHNIQUE: 3 views of the right ribs were acquired, along with a single view chest. COMPARISON: None. FINDINGS: Surgical changes and devices: None. Bones and chest wall: Slight offset involving right posterior lateral 7th rib. No suspicious bony lesions. Overlying soft tissues appear unremarkable. Lungs and pleura: No pleural effusions or pneumothorax. Lungs appear clear. Mediastinum: Mediastinal contours appear normal. Heart size is normal. IMPRESSION: Finding is concerning for minimally displaced right posterior lateral 7th rib fracture. No acute cardiopulmonary pathology. Findings were reported to the ER at 7:50 a.m. On 03/11/2023. Dictated by: Talha Jimenes M.D. on 03/11/2023 at 7:42 Approved by: Talha Jimenes M.D. on 03/11/2023 at 7:46
[2023-03-11] MEDS: HYDROMORPHONE 1 MG INJ IM (04:39)
[2023-03-11] MEDS: HYDROCODONE/ACET 5/325 PREPACK 1 BOTTLE MISC (06:47)
[2023-03-11] MEDS: HYDROCODONE/ACET 5/325 TABLET 1 TAB PO (06:47)
[2023-03-11] MEDS: CYCLOBENZAPRINE 10 MG PREPACK 1 BOTTLE MISC (06:47)
[2023-03-11] MEDS: CYCLOBENZAPRINE 10 MG TABLET PO (06:47)
[2023-03-11 06:53] VITALS: BP 148/80; PULSE 109; RESP 18; O2SAT 95
== END 2023-03-11 06:53 | disposition home or self-care (01) ==
PROVIDERS: Emergency Provider Emergency Medicine
DX: S20.211A Contusion of right front wall of thorax, initial encounter (principal); W01.0XXA Fall on same level from slipping, tripping and stumbling without subsequent striking against object, initial encounter
CPT/HCPCS: 71101; 96372; 99283; J1170

== ENCOUNTER 2023-05-02 11:54 | Emergency (ER) | payer SELFPAY ==
[2019-03-27 11:56] VITALS: BMI 32.5
[2023-05-02 12:11] VITALS: BP 240/134; PULSE 89; RESP 16; TEMP 36.6; O2SAT 97; BMI 32.9
--- NOTE | 2023-05-02 12:53 | PC.NURSE ---
Pt denies injury,strong palpable radial pulse,CMS intact right hand.
[2023-05-02 12:54] VITALS: BP 227/124; PULSE 97; O2SAT 99
--- NOTE | 2023-05-02 13:06 | ED.NECK ---
HPI - Neck Pain/Injury <Vivi Abrams PA-C - Last Filed: 05/02/23 16:03> General Chief Complaint: Neck Pain/Injury Stated Complaint: cant move neck, hand and arm numb t-7 Time Seen by Provider: 05/02/23 13:05 Mode of arrival: Ambulatory History of Present Illness HPI Narrative: 48-year-old female with past medical history elevated blood pressure readings presents to the ED with 4 days of right-sided neck pain radiating down to her right arm. Patient denies any particular trauma, woke up 4 days ago feeling that her neck was stiff, followed by the neck pain radiating to the right arm. Patient endorses some intermittent tingling in the right arm. Patient denies numbness, weakness. Patient states that she has had some neck pain in the past, however has not been this severe. Patient denies headache, nausea, vomiting, chest pain, shortness of breath. Patient has tried ibuprofen without relief. Related Data Home Medications Medication Instructions Recorded Confirmed ferrous sulfate 325 mg (65 mg 325 mg PO DAILY 02/18/19 09/24/21 iron) tablet multivitamin,tx-minerals 1 cap PO DAILY 03/22/19 09/24/21 (Multi-Vitamin HP/Minerals capsule) naproxen sodium 220 mg capsule 220 mg PO Q8H PRN Pain (Scale 03/27/19 09/24/21 (Aleve) Score 1-3) Previous Rx's Medication Instructions Recorded hydrocortisone 2.5 % topical cream 1 applic topical BID PRN rash #30 09/24/21 grams cyclobenzaprine 10 mg tablet 10 mg PO TID PRN muscle spasm #21 03/11/23 tabs hydrocodone 5 mg-acetaminophen 325 1 tab PO Q4-6H PRN pain #14 tabs 03/11/23 mg tablet cyclobenzaprine 10 mg tablet 10 mg PO TID PRN muscle spasm 7 05/02/23 days #21 tabs Allergies Allergy/AdvReac Type Severity Reaction Status Date / Time No Known Drug Allergies Allergy Verified 09/24/21 15:33 Review of Systems <Vivi Abrams PA-C - Last Filed: 05/02/23 16:03> Review of Systems ROS Unobtainable: All systems reviewed & are unremarkable except as noted in HPI and below Constitutional Constitutional: Denies chills, Denies fatigue, Denies fever(s), Denies frequent falls, Denies lethargy and Denies weakness Eyes Eyes: Denies change in vision, Denies eye discharge, Denies irritation and Denies loss of vision ENT Ears, Nose, Mouth, and Throat: Denies change in voice, Denies dizziness, Reports neck pain, Denies sore throat and Denies throat swelling Cardiovascular Cardiovascular: Denies chest pain, Denies irregular heart rhythm, Denies lightheadedness, Denies palpitations, Denies dyspnea, Denies dyspnea on exertion and Denies orthopnea Respiratory Respiratory: Denies cough, Denies dyspnea, Denies dyspnea on exertion and Denies wheezing Gastrointestinal Gastrointestinal: Denies abdominal pain, Denies change in bowel habits, Denies diarrhea, Denies nausea and Denies vomiting Genitourinary Genitourinary: Denies hematuria, Denies flank pain, Denies urinary incontinence and Denies urinary urgency Musculoskeletal Musculoskeletal: Denies back pain, Denies muscle weakness, Reports neck pain, Denies numbness, Reports radiating pain into limb and Denies tingling Integumentary/Breasts Skin/Breast: Denies pruritus, Denies erythema, Denies rash and Denies wounds Neurologic Neurologic: Denies behavioral changes, Denies confusion, Denies dizziness, Denies frequent falls, Denies loss of vision, Denies numbness, Denies tingling and Denies weakness Psychiatric Psychiatric: Denies anxiety, Denies behavioral changes, Denies confusion, Denies depression, Denies homicidal ideation and Denies suicidal ideation Endocrine Endocrine: Denies fatigue, Denies flushing and Denies palpitations Hematologic/Lymphatic Hematologic/Lymphatic: Denies easy bruising Allergic/Immunologic Allergic/Immunologic: Denies urticaria, Denies throat swelling and Denies wheezing Patient History <Vivi Abrams PA-C - Last Filed: 05/02/23 16:03> Medical History Acute pain of left shoulder Anemia (02/15/19) Eczema of left upper extremity Elevated blood pressure reading Menorrhagia Seasonal allergies Surgical History Anesthesia Hx of tubal ligation (~02/13/07) Family History Grandfather No problems noted. Grandmother Cancer Social History household members: spouse Smoking Status: Never smoker Smoking Status: Never smoker alcohol intake frequency: a few times a week Substance Use Type: does not use Exam <Vivi Abrams PA-C - Last Filed: 05/02/23 16:03> Narrative Exam Narrative: Const General:?cooperative, healthy appearing and comfortable HENOH Head:?normal to inspection Ears:?hearing grossly normal bilaterally Nose:?external nose normal Face and sinus:?normal facial exam and sinuses nontender Mouth:?oral mucosae normal Throat:?posterior oropharynx normal Eyes General:?appearance normal, both eyes and all related structures Neck Neck:?normal visual inspection and no lymphadenopathy noted Resp Effort & Inspection:?normal respiratory effort Auscultation:?clear to auscultation bilaterally Cardio Rate:?regular rate Rhythm:?regular rhythm Musculoskeletal No midline tenderness to palpation, no paraspinal tenderness to palpation. There is some tenderness to palpation to right upper back. Full range of motion. Strength and sensation is intact. Patient is neurovascularly intact. Neuro General:?patient alert, patient awake and patient oriented x3 Initial Vital Signs Initial Vital Signs: Vital Signs Temperature 97.8 F 05/02/23 12:11 Pulse Rate 89 05/02/23 12:11 Respiratory Rate 16 05/02/23 12:11 Blood Pressure 240/134 H 05/02/23 12:11 Pulse Oximetry 97 05/02/23 12:11 Oxygen Delivery Method Room Air 05/02/23 12:11 Const General: cooperative [facility] Head: normocephalic and atraumatic Ears: external ears normal and TM's normal bilaterally Nose: external nose normal and No nasal discharge Face and sinus: sinuses nontender, face symmetric, no sinus tenderness and No dry mucous membranes Mouth: oral mucosae normal and moist mucous membranes Teeth and gingiva: dentition normal Throat: tonsils normal and uvula midline Eyes General: Yes appearance normal, both eyes and all related structures Eyelids: eyelids normal Conjunctivae: conjunctivae normal Sclera: sclerae normal Pupils: PERRL EOM: EOM intact bilaterally Neck Neck: normal visual inspection, trachea midline, No lymphadenopathy, No midline deformity and No JVD Lymphatic: No lymphedema Chest Chest: normal inspection of the chest Resp Effort & Inspection: normal respiratory effort, able to speak in complete sentences, no respiratory distress and no use of accessory muscles Auscultation: clear to auscultation bilaterally, no rales, no rhonchi and no wheezes Cardio Rate: regular rate Rhythm: regular rhythm Heart Sounds: no click, no gallops, no murmurs and no rubs Pulses: normal peripheral pulses GI Inspection: non-distended Palpation: soft, no hepatosplenomegaly, No guarding, No pulsatile mass and No tender Auscultation: normal bowel sounds Back/Spine/Pelvis Back: No CVA tenderness Cervical Spine: cervical ROM normal and No pain with cervical ROM Thoracic/Lumbar Spine: thoracic and lumbar spine normal to inspection Skin General: no rashes or lesions noted, No jaundice and No petechiae Neuro General: patient alert, patient oriented x3, gait normal and no focal motor deficits Speech: speech normal Extrem General: full ROM, no clubbing, cyanosis or edema, no pedal edema and no calf tenderness Psych Appearance: well kempt Mental Status: mental status grossly normal Attitude: cooperative Thought Content: normal and suicidality Judgment: judgment good <Genaro Jacobs MD - Last Filed: 05/03/23 07:13> Initial Vital Signs Initial Vital Signs: Vital Signs Temperature 97.8 F 05/02/23 12:11 Pulse Rate 89 05/02/23 12:11 Respiratory Rate 16 05/02/23 12:11 Blood Pressure 240/134 H 05/02/23 12:11 Pulse Oximetry 97 05/02/23 12:11 Oxygen Delivery Method Room Air 05/02/23 12:11 Course <Vivi Abrams PA-C - Last Filed: 05/02/23 16:03> Orders Ordered: Discontinued Medications Cyclobenzaprine HCl (Cyclobenzaprine 10 Mg Tablet) 10 mg PO NOW ONE Stop: 05/02/23 13:12 Last Admin: 05/02/23 13:15 Dose: 10 mg Documented By: YUMIKO Ketorolac Tromethamine (Ketorolac 30 Mg/Ml Vial) 30 mg IM NOW ONE Stop: 05/02/23 13:12 Last Admin: 05/02/23 13:15 Dose: 30 mg Documented By: YUMIKO Vital Signs Vital signs: Vital Signs - 8 hr 05/02/23 12:11 05/02/23 12:54 05/02/23 15:59 Temperature 97.8 F Pulse Rate 89 97 H 99 H Respiratory Rate 16 Blood Pressure 240/134 H 227/124 H 197/97 H Pulse Oximetry 97 99 99 Oxygen Delivery Method Room Air Room Air <Genaro Jacobs MD - Last Filed: 05/03/23 07:13> Orders Ordered: Discontinued Medications Cyclobenzaprine HCl (Cyclobenzaprine 10 Mg Tablet) 10 mg PO NOW ONE Stop: 05/02/23 13:12 Last Admin: 05/02/23 13:15 Dose: 10 mg Documented By: YUMIKO Ketorolac Tromethamine (Ketorolac 30 Mg/Ml Vial) 30 mg IM NOW ONE Stop: 05/02/23 13:12 Last Admin: 05/02/23 13:15 Dose: 30 mg Documented By: YUMIKO Vital Signs Vital signs: Vital Signs - 8 hr 05/02/23 12:11 05/02/23 12:54 05/02/23 15:59 Temperature 97.8 F Pulse Rate 89 97 H 99 H Respiratory Rate 16 Blood Pressure 240/134 H 227/124 H 197/97 H Pulse Oximetry 97 99 99 Oxygen Delivery Method Room Air Room Air MDM - Neck Pain/Injury <Vivi Abrams PA-C - Last Filed: 05/02/23 16:03> MDM Narrative Medical decision making narrative: 48-year-old female with past medical history elevated blood pressure readings presents to the ED with 4 days of right-sided neck pain radiating down to her right arm. Concern for cervical radiculopathy versus musculoskeletal sprain/strain. There is no midline tenderness to palpation. No indication for imaging at this time. Will give Toradol and Flexeril for pain. Will reassess. Patient had mild improvement with the medications. Recommend continuing ibuprofen, Tylenol, Flexeril for symptom relief. Recommend lidocaine patches, heat packs. Recommend follow-up with PCP for referral to ortho specialist. ED return precautions were discussed with patient. Patient verbalized understanding. Medical records reviewed: Yes Discharge Plan Departure Patient Disposition: Home Clinical Impression: Neck pain Instructions: DI for Neck Pain Activity Restrictions/Additional Instructions: You were evaluated in the ED today for neck pain. Your symptoms could be either caused due to a musculoskeletal sprain or strain or due to a slipped disc in your neck. Please follow-up with your PCP as soon as possible for further evaluation and possible referral to ortho. You may use lidocaine patches, apply heat packs. You may take Tylenol 1000 mg 3 times a day along with 600 mg of ibuprofen 3 times a day. Please take these with food. You were also being prescribed Flexeril which is a muscle relaxant for pain relief. Return to the ED if you have worsening symptoms, numbness, tingling, weakness. Prescriptions: New cyclobenzaprine 10 mg tablet 10 mg PO TID PRN (Reason: muscle spasm) 7 Days Qty: 21 0RF No Action ferrous sulfate 325 mg (65 mg iron) tablet 325 mg PO DAILY hydrocortisone 2.5 % cream 1 applic topical BID PRN (Reason: rash) Qty: 30 1RF Multi-Vitamin HP/Minerals capsule 1 cap PO DAILY naproxen sodium [Aleve] 220 mg Capsule 220 mg PO Q8H PRN (Reason: Pain (Scale Score 1-3)) hydrocodone-acetaminophen 5-325 mg tablet 1 tab PO Q4-6H PRN (Reason: pain) Qty: 14 0RF cyclobenzaprine 10 mg tablet 10 mg PO TID PRN (Reason: muscle spasm) Qty: 21 0RF Referrals: Miscellaneous,DoctorMD [Primary Care Provider] - Stand Alone Forms: Patient Portal/API <Genaro Jacobs MD - Last Filed: 05/03/23 07:13> [facility] [place] Attestation: I was immediately available in the department for consultation. ?This documentation has been reviewed and I agree with assessment and plan. Supervised by Genaro Jacobs MD
[2023-05-02] MEDS: KETOROLAC 30 MG/ML VIAL IM (13:15)
[2023-05-02] MEDS: CYCLOBENZAPRINE 10 MG TABLET PO (13:15)
[2023-05-02 15:59] VITALS: BP 197/97; PULSE 99; O2SAT 99
== END 2023-05-02 16:00 | disposition home or self-care (01) ==
PROVIDERS: Emergency Provider Student in an Organized Health Care Education/Training Program
DX: M54.2 Cervicalgia (principal)
CPT/HCPCS: 96372; 99283; J1885